=== PATIENT | female | born 1995 | race Caucasian/White ===

== ENCOUNTER 2021-02-24 12:36 | Emergency (ER) | payer OTHER ==
[2021-02-24] MEDS ORDERED: Sodium Chloride 0.9% 10 ML Syringe FLUSH PRN (13:46)
[2021-02-24] MEDS ORDERED: Ondansetron 4 MG/2 ML SDV IVPUSH ONE (13:46)
[2021-02-24] MEDS ORDERED: Aspirin 81 MG Tab.Chew PO ONE (13:46)
[2021-02-24] MEDS ORDERED: Ketorolac 30 MG/ML SDV IVPUSH ONE (13:47)
--- NOTE | 2021-02-24 13:48 | EDM.PDOC ---
ED HPI GENERAL MEDICAL PROBLEM - General Chief Complaint: Chest Pain Stated Complaint: CHEST PAIN,BACK PAIN AND L ARM NUMB Time Seen by Provider: 02/24/21 13:37 Source of Information: Reports: Patient, RN Notes Reviewed History Limitations: Reports: No Limitations - History of Present Illness INITIAL COMMENTS - FREE TEXT/NARRATIVE: 25-year-old female presents emergency department day complaint of chest pain, she states she has had chest pain since last night does feel nauseated no diaphoresis no shortness of breath. She denies any stressful events no significant family history other than grandfather with history of coronary artery disease in his 70s. Does use tobacco products has never had any cardiac issues. midsternal chest Pain Score (Numeric/FACES): 4 - Related Data Allergies Allergy/AdvReac Type Severity Reaction Status Date / Time fluoxetine [From Prozac] Allergy Anxiety Verified 02/24/21 13:29 Home Meds: Home Meds NK [No Known Home Meds] 02/24/21 [History] Past Medical History [employer] History: Reports: Psychiatric History: Reports: Anxiety Social & Family History - Tobacco Use Tobacco Use Status *Q: Current Every Day Tobacco User Years of Tobacco use: 10 Packs/Tins Daily: 0.5 - Recreational Drug Use Recreational Drug Use: No ED ROS GENERAL - Review of Systems Review Of Systems: See Below Constitutional: Reports: No Symptoms HEENT: Reports: No Symptoms Respiratory: Reports: No Symptoms Cardiovascular: Reports: Chest Pain GI/Abdominal: Reports: Nausea ED EXAM, GENERAL - Physical Exam Exam: See Below Exam Limited By: No Limitations General Appearance: Alert, WD/WN, No Apparent Distress Respiratory/Chest: No Respiratory Distress, Lungs Clear, Normal Breath Sounds, No Accessory Muscle Use, Chest Non-Tender Cardiovascular: Regular Rate, Rhythm, No Murmur GI/Abdominal: Soft, Non-Tender #1 Interpretation EKG Date: 02/24/21 Time: 13:54 Rhythm: NSR Stephenson: Normal P-Wave: Present QRS: Normal ST-T: Normal QT: Normal Comparison: NA - No Prior EKG Course - Vital Signs Last Recorded V/S: Last Vital Signs Temp 97 F 02/24/21 13:38 Pulse Resp 12 02/24/21 14:11 BP 136/95 H 02/24/21 14:11 Pulse Ox 96 02/24/21 14:11 - Orders/Labs/Meds Orders: Active Orders 24 hr Category Date Time Status Cardiac Monitoring [RC] .As Directed Care 02/24/21 13:46 Active EKG Documentation Completion [RC] ASDIRECTED Care 02/24/21 13:47 Active Peripheral IV Care [RC] . DIRECTED Care 02/24/21 13:47 Active Sodium Chloride 0.9% [Saline Flush] Med 02/24/21 13:46 Active 10 ml FLUSH ASDIRECTED PRN Peripheral IV Insertion Adult [OM.PC] Stat Oth 02/24/21 13:46 Ordered Saline Lock Insert [OM.PC] Stat Oth 02/24/21 13:46 Ordered EKG 12 Lead [EK] Stat Ther 02/24/21 13:47 Ordered Medication Orders Sodium Chloride (Sodium Chloride 0.9% 10 Ml Syringe) 10 ml FLUSH ASDIRECTED PRN PRN Reason: Keep Vein Open Last Admin: 02/24/21 14:05 Dose: 10 ml Documented by: DOMINICK Labs: Laboratory Tests 02/24/21 02/24/21 Range/Units 13:55 13:55 WBC 13.8 H (4.5-11.0) K/uL RBC 4.65 (3.30-5.50) M/uL Hgb 14.2 (12.0-15.0) g/dL Hct 42.2 (36.0-48.0) % MCV 91 (80-98) fL MCH 31 (27-31) pg MCHC 34 (32-36) % Plt Count 256 (150-400) K/uL Neut % (Auto) 73.7 H (36-66) % Lymph % (Auto) 18.9 L (24-44) % [place] % (Auto) 6.3 H (2-6) % Eos % (Auto) 0.8 L (2-4) % Baso % (Auto) 0.3 (0-1) % Sodium 140 (140-148) mmol/L Potassium 4.1 (3.6-5.2) mmol/L Chloride 104 (100-108) mmol/L Carbon Dioxide 28 (21-32) mmol/L Anion Gap 8.4 (5.0-14.0) mmol/L BUN 10 (7-18) mg/dL Creatinine 0.8 (0.6-1.0) mg/dL Est Cr Clr Drug Dosing 102.72 mL/min Estimated GFR (MDRD) > 60 (>60) Glucose 85 (74-106) mg/dL Calcium 8.9 (8.5-10.1) mg/dL Troponin I < 0.017 (0.000-0.056) ng/mL Meds: Medications Generic Name Dose Route Start Last Admin Trade Name Freq PRN Reason Stop Dose Admin Sodium Chloride 10 ml 02/24/21 13:46 02/24/21 14:05 Sodium Chloride 0.9% 10 Ml Syringe FLUSH 10 ml ASDIRECTED PRN Administration Keep Vein Open Discontinued Medications Generic Name Dose Route Start Last Admin Trade Name Freq PRN Reason Stop Dose Admin Aspirin 324 mg 02/24/21 13:46 02/24/21 14:03 Aspirin 81 Mg Tab.Chew PO 02/24/21 13:47 324 mg ONETIME ONE Administration Ketorolac Tromethamine 30 mg 02/24/21 13:47 02/24/21 14:08 Ketorolac 30 Mg/Ml Sdv IVPUSH 02/24/21 13:48 30 mg ONETIME ONE Administration Ondansetron HCl 4 mg 02/24/21 13:46 02/24/21 14:04 Ondansetron 4 Mg/2 Ml Sdv IVPUSH 02/24/21 13:47 4 mg ONETIME ONE Administration Departure - Departure Time of Disposition: 15:05 Disposition: Home, Self-Care 01 Condition: Fair Clinical Impression: Atypical chest pain Instructions: Nonspecific Chest Pain, Adult Referrals: Tashi Caro PA-C [Primary Care Provider] - Forms: ED Department Discharge Additional Instructions: Continue with your regular medications, please keep your follow-up appointment with your primary care next week call return to the emergency department worsening of symptoms, Sepsis Event Note (ED) - Evaluation Sepsis Screening Result: No Definite Risk - Focused Exam Vital Signs: Vital Signs Temp Resp BP Pulse Ox 02/24/21 14:11 12 136/95 H 96 02/24/21 13:38 97 F 14 128/86 97 - My Orders Last 24 Hours: My Active Orders 02/24/21 13:46 Cardiac Monitoring [RC] .As Directed Sodium Chloride 0.9% [Saline Flush] 10 ml FLUSH ASDIRECTED PRN Peripheral IV Insertion Adult [OM.PC] Stat Saline Lock Insert [OM.PC] Stat 02/24/21 13:47 EKG Documentation Completion [RC] ASDIRECTED Peripheral IV Care [RC] . DIRECTED EKG 12 Lead [EK] Stat - Assessment/Plan Last 24 Hours: My Active Orders 02/24/21 13:46 Cardiac Monitoring [RC] .As Directed Sodium Chloride 0.9% [Saline Flush] 10 ml FLUSH ASDIRECTED PRN Peripheral IV Insertion Adult [OM.PC] Stat Saline Lock Insert [OM.PC] Stat 02/24/21 13:47 EKG Documentation Completion [RC] ASDIRECTED Peripheral IV Care [RC] . DIRECTED EKG 12 Lead [EK] Stat Plan: Assessment Acuity = acute Site and laterality = atypical chest pain Etiology = unknown Manifestations = none Location of injury = Home Lab values = CBC, BMP unremarkable troponin was negative EKG demonstrates sinus rhythm chest x-ray shows no acute cardiopulmonary process Plan She had some relief with Toradol, she has a follow-up appointment with your primary care next week This note was dictated using [employer] voice recognition software please call with any questions on syntax or grammar.
--- NOTE | 2021-02-24 14:38 | CR ---
CHEST: 2 view CLINICAL HISTORY:Chest pain COMPARISON:None FINDINGS: The heart size, pulmonary vascularity and hilar structures are normal. No infiltrate effusion or pneumothorax is seen. IMPRESSION: No acute cardiopulmonary process.
== END 2021-02-24 15:35 | disposition home or self-care (01) ==
LOC: JP.ED 12:36
DX: R07.89 Other chest pain (principal); Z72.0 Tobacco use; Z88.5 Allergy status to narcotic agent
CPT/HCPCS: 36415; 71046; 80048; 84484; 85025; 93005; 96374; 96375; 99285; A9270; J1885; J2405